=== PATIENT | female | born 1940 | race Caucasian/White ===

== ENCOUNTER 2017-07-11 18:57 | Emergency (ER) | payer OTHER ==
[2017-07-11 19:12] VITALS: BP 131/65; PULSE 82; RESP 20; TEMP 97.7; O2SAT 99
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
== END 2017-07-11 20:49 | disposition home or self-care (01) ==
LOC: PHEFT 18:57
DX: Z04.1 Encounter for examination and observation following transport accident (principal)
CPT/HCPCS: 99283